=== PATIENT | female | born 1995 | race Caucasian/White ===

== ENCOUNTER 2016-08-31 05:48 | Emergency (ER) | payer SELFPAY ==
[~2016-08-31] VITALS: Ht 149.9 cm; Wt 68.2 kg
[~2016-08-31 05:48] MED LIST: ADVAIR 100/28 DISKU1 IH; BACTRIM DS 8001 TAB PO; CEFTIN500 MG PO; CEPHALEXIN500 M1 PO; COLACE 100100 MG/CAP PO; DOLOPHINE HCL5 MG PO; FLEXERIL 1010 MG/TAB PO; LORTAB 5/500 501 TAB PO; METRONIDAZOLE500 MG PO; MOTRIN600 MG PO; NO HOME MEDICATIONS; NORCO 325 MG-51 TAB PO; PRENATAL1 TA1 PO; PROVENTIL0.09 MG/A1 IH; SINGULAIR10 MG PO; TUMS500 MG PO; ULTRAM 50MG TAB50 MG PO; VIBRAMYCIN HYC100 MG PO; VICODIN 5/5001 UDTAB PO; ZOFRAN 4MG T4 MG/TAB PO; advair; singular
[2016-08-31 05:52] VITALS: BP 125/65; PULSE 108; TEMP 98.3
[2016-08-31] MEDS ORDERED: TOPROL XL 25MG25 MG PO (05:55)
== END 2016-08-31 06:26 | disposition home or self-care (01) ==
LOC: COL.ER 05:48
DX: R21 Rash and other nonspecific skin eruption (principal); I10 Essential (primary) hypertension; F17.210 Nicotine dependence, cigarettes, uncomplicated

== ENCOUNTER 2016-10-12 12:19 | Emergency (ER) | payer SELFPAY ==
[~2016-10-12] VITALS: Ht 149.9 cm; Wt 68.2 kg
[~2016-10-12 12:19] MED LIST changes: +TOPROL XL 25MG25 MG PO
[2016-10-12 12:22] VITALS: BP 125/67; PULSE 95; TEMP 98.4
[2016-10-12 13:19] LABS: PH 8 (5-8); SQUAMOUS EPITHELIAL None Seen /hpf; URINE APPEARANCE Hazy; URINE BACTERIA None Seen /hpf; URINE BILIRUBIN Negative (NEGATIVE); URINE BLOOD 2+ (NEGATIVE); URINE COLOR Straw; URINE GLUCOSE Negative (NEGATIVE); URINE KETONE Negative (NEGATIVE); URINE UROBILINOGEN Negative (NEGATIVE)
[2016-10-12 13:20] LABS: URINE WBC >50 /hpf
[2016-10-12] MEDS ORDERED: PYRIDIUM200 M1 PO (13:52)
[2016-10-12] MEDS ORDERED: MACROBID 1100 MG/CAP PO (13:52)
[2016-10-13] MEDS ORDERED: CEPHALEXIN500 M1 PO (15:45)
== END 2016-10-12 14:18 | disposition home or self-care (01) ==
LOC: COL.ER 12:19
PROVIDERS: Physician Assistant
DX: N39.0 Urinary tract infection, site not specified (principal); J45.909 Unspecified asthma, uncomplicated; F41.9 Anxiety disorder, unspecified; F17.210 Nicotine dependence, cigarettes, uncomplicated

== ENCOUNTER 2016-10-13 14:05 | Emergency (ER) | payer SELFPAY ==
[~2016-10-13] VITALS: Ht 149.9 cm; Wt 68.2 kg
[~2016-10-13 14:05] MED LIST changes: +MACROBID 1100 MG/CAP PO; +PYRIDIUM200 M1 PO
[2016-10-13 14:11] VITALS: TEMP 98.4
[2016-10-13 14:59] LABS: BASO % 0.3 % (0.0-2.0); EOS # 0.1 (0.0-0.7); EOS % 0.8 % (0-4.0); GRAN # 6.8 (1.4-6.5); GRAN % 68.6 % (42.2-75.2); HEMATOCRIT 36.6 % (37.0-47.0); HEMOGLOBIN 12.7 g/dl (12.5-16.0); LYMPH # 2.5 (1.2-3.4); LYMPH % 25.3 % (20.0-51.0); MEAN CELL VOLUME 84 fl (80.0-100.0); MEAN CORPUSCULAR HEMOGLOBIN 29 pg (27.0-31.0); MEAN CORPUSCULAR HGB CONC 35 g/dl (33.0-37.0); MEAN PLATELET VOLUME 9.5 fl (7.4-10.4); MONO # 0.5 (0.1-0.6); MONO % 4.6 % (1.7-9.3); PLATELET COUNT 324 K/mm3 (130-400); RED BLOOD COUNT 4.34 M/mm3 (4.10-5.30); REDCELL DISTRIBUTION WIDTH-CV 12.1 % (11.5-14.5)
[2016-10-13 15:18] LABS: ADJUSTED CALCIUM 8.3 mg/dL (8.4-10.2); ALBUMIN 4.1 gm/dL (3.5-5.0); BILIRUBIN,TOTAL 0.6 mg/dL (0.0-1.0); C-REACTIVE PROTEIN 1.6 mg/dL (0.0-0.9); CALCIUM 8.4 mg/dL (8.4-10.2); CREATININE, serum 0.6 mg/dL (0.52-1.25); POTASSIUM 3.8 mmol/L (3.4-5.0); TOTAL PROTEIN 6.7 gm/dL (6.4-8.2)
[2016-10-13] MEDS ORDERED: CEPHALEXIN500 M1 PO (15:45)
[2016-10-13 15:54] VITALS: BP 105/76; PULSE 78
== END 2016-10-13 15:55 | disposition home or self-care (01) ==
LOC: COL.ER 14:05
PROVIDERS: Physician Assistant
DX: N39.0 Urinary tract infection, site not specified (principal); B96.89 Other specified bacterial agents as the cause of diseases classified elsewhere; J45.909 Unspecified asthma, uncomplicated
CPT/HCPCS: J0696; J7030

== ENCOUNTER 2016-10-29 15:23 | Emergency (ER) | payer SELFPAY ==
[~2016-10-29] VITALS: Ht 149.9 cm; Wt 68.2 kg
[2016-10-29 15:28] VITALS: BP 116/72; TEMP 98.7
[2016-10-29 15:58] VITALS: PULSE 88
== END 2016-10-29 15:58 | disposition home or self-care (01) ==
LOC: COL.ER 15:23
DX: S09.90XA Unspecified injury of head, initial encounter (principal); J45.909 Unspecified asthma, uncomplicated; F41.9 Anxiety disorder, unspecified; F17.210 Nicotine dependence, cigarettes, uncomplicated; Y07.03 Male partner, perpetrator of maltreatment and neglect; Y04.2XXA Assault by strike against or bumped into by another person, initial encounter

== ENCOUNTER 2016-11-01 01:12 | Emergency (ER) | payer SELFPAY ==
[~2016-11-01] VITALS: Ht 149.9 cm; Wt 68.2 kg
[2016-11-01 01:17] VITALS: TEMP 97.4
[2016-11-01] MEDS ORDERED: PREDNISONE20 MG PO (01:44)
[2016-11-01 02:00] VITALS: BP 137/92; PULSE 110
== END 2016-11-01 02:00 | disposition home or self-care (01) ==
LOC: COL.ER 01:12
DX: J45.901 Unspecified asthma with (acute) exacerbation (principal); F17.210 Nicotine dependence, cigarettes, uncomplicated
CPT/HCPCS: J7512

== ENCOUNTER 2017-01-08 12:16 | Emergency (ER) | payer SELFPAY ==
[~2017-01-08] VITALS: Ht 149.9 cm; Wt 68.2 kg
[~2017-01-08 12:16] MED LIST changes: +PREDNISONE20 MG PO
[2017-01-08 12:21] VITALS: BP 114/60; PULSE 102; TEMP 98.9
[2017-01-08 14:39] LABS: BASO % 0.3 % (0.0-2.0); EOS # 0.1 (0.0-0.7); EOS % 1.2 % (0-4.0); GRAN # 7.3 (1.4-6.5); GRAN % 79.7 % (42.2-75.2); LYMPH # 1.3 (1.2-3.4); LYMPH % 13.8 % (20.0-51.0); MEAN CELL VOLUME 87 fl (80.0-100.0); MEAN CORPUSCULAR HEMOGLOBIN 30 pg (27.0-31.0); MEAN CORPUSCULAR HGB CONC 35 g/dl (33.0-37.0); MEAN PLATELET VOLUME 9.5 fl (7.4-10.4); MONO # 0.4 (0.1-0.6); MONO % 4.3 % (1.7-9.3); PLATELET COUNT 256 K/mm3 (130-400); RED BLOOD COUNT 3.98 M/mm3 (4.10-5.30); REDCELL DISTRIBUTION WIDTH-CV 12.3 % (11.5-14.5); WHITE BLOOD COUNT 9.2 K/mm3 (4.8-10.8)
[2017-01-08 14:42] LABS: HEMATOCRIT 34.7 % (37.0-47.0)
[2017-01-08 14:49] LABS: CREATININE, serum 0.53 mg/dL (0.52-1.25); POTASSIUM 3.7 mmol/L (3.4-5.0)
[2017-01-08 16:34] LABS: PH 7 (5-8); URINE APPEARANCE Hazy; URINE BACTERIA Rare /hpf; URINE BILIRUBIN Negative (NEGATIVE); URINE BLOOD 1+ (NEGATIVE); URINE COLOR Yellow; URINE GLUCOSE 2+ (NEGATIVE); URINE KETONE Negative (NEGATIVE); URINE RBC 0-2 /hpf; URINE UROBILINOGEN Negative (NEGATIVE)
== END 2017-01-08 17:50 | disposition home or self-care (01) ==
LOC: COL.ER 12:16
PROVIDERS: Emergency Medicine
DX: O99.511 Diseases of the respiratory system complicating pregnancy, first trimester (principal); J06.9 Acute upper respiratory infection, unspecified; O98.511 Other viral diseases complicating pregnancy, first trimester; B34.9 Viral infection, unspecified; J45.909 Unspecified asthma, uncomplicated; O99.331 Smoking (tobacco) complicating pregnancy, first trimester; F17.200 Nicotine dependence, unspecified, uncomplicated; Z3A.08 8 weeks gestation of pregnancy; Z32.01 Encounter for pregnancy test, result positive
CPT/HCPCS: J2765; J7030

== ENCOUNTER 2017-07-05 11:10 | Outpatient (CLI) | payer MEDICAID ==
[~2017-07-05] VITALS: Ht 152.4 cm; Wt 74.1 kg
[2017-07-05 11:25] VITALS: BP 119/57; PULSE 86; TEMP 99
[2017-07-05] MEDS ORDERED: PRENATAL MVI (11:32)
[2017-07-05 12:45] VITALS: BP 115/57; PULSE 84
== END 2017-07-05 12:55 | disposition home or self-care (01) ==
LOC: LDRO 11:10 → LDR 11:15 → LDRO 12:55
DX: O26.893 Other specified pregnancy related conditions, third trimester (principal); Z3A.35 35 weeks gestation of pregnancy
CPT/HCPCS: OP

== ENCOUNTER 2017-07-09 21:03 | Emergency (ER) | payer MEDICAID ==
[~2017-07-09] VITALS: Ht 149.9 cm; Wt 73.6 kg
[~2017-07-09 21:03] MED LIST changes: +PRENATAL MVI
[2017-07-09 21:05] VITALS: TEMP 98
[2017-07-09 21:24] LABS: COLLECTION METHOD CLEAN CATCH
[2017-07-09 21:30] LABS: MUCOUS Present /lpf; PH 5 (5-8); SQUAMOUS EPITHELIAL 20-50 /hpf; URINE APPEARANCE Cloudy; URINE BACTERIA Rare /hpf; URINE BILIRUBIN Positive (NEGATIVE); URINE BLOOD Negative (NEGATIVE); URINE COLOR Amber; URINE GLUCOSE Negative (NEGATIVE); URINE KETONE 1+ (NEGATIVE); URINE LEUKOCYTE ESTERASE 1+ (NEGATIVE); URINE NITRATE Negative (NEGATIVE); URINE PROTEIN(semi-quant) 2+ (NEGATIVE)
[2017-07-09 21:37] LABS: TRICYCLIC ANTIDEPRESS URINE NEGATIVE
[2017-07-09] MEDS ORDERED: ZOFRAN 4MG T4 MG/TAB PO (22:17)
[2017-07-09 23:00] VITALS: BP 136/61
[2017-07-10] MEDS ORDERED: OMNICEF 300MG300 MG PO (00:05)
[2017-07-10 00:58] VITALS: PULSE 80
== END 2017-07-10 00:58 | disposition home or self-care (01) ==
LOC: COL.ER 21:03
PROVIDERS: Emergency Medicine
DX: O99.283 Endocrine, nutritional and metabolic diseases complicating pregnancy, third trimester (principal); E86.0 Dehydration; O21.9 Vomiting of pregnancy, unspecified; O99.323 Drug use complicating pregnancy, third trimester; F11.23 Opioid dependence with withdrawal; Z3A.36 36 weeks gestation of pregnancy
CPT/HCPCS: J2405; J7030

== ENCOUNTER 2017-07-25 08:52 | Outpatient (CLI) | payer MEDICAID ==
[~2017-07-25] VITALS: Ht 149.9 cm; Wt 75.8 kg
[~2017-07-25 08:52] MED LIST changes: +OMNICEF 300MG300 MG PO
[2017-07-25 09:30] VITALS: BP 128/69; PULSE 93; TEMP 98
[2017-07-25 10:00] VITALS: BP 124/69; PULSE 88
[2017-07-25 10:02] LABS: TRICYCLIC ANTIDEPRESS URINE NEGATIVE
[2017-07-25 10:30] VITALS: BP 136/65; PULSE 135
[2017-07-25 11:00] VITALS: BP 126/72; PULSE 72
== END 2017-07-25 11:15 | disposition home or self-care (01) ==
LOC: LDRO 08:52
PROVIDERS: Obstetrics & Gynecology
DX: O62.9 Abnormality of forces of labor, unspecified (principal); Z3A.37 37 weeks gestation of pregnancy

== ENCOUNTER 2017-08-04 06:24 | Inpatient (IN) | payer MEDICAID ==
[~2017-08-04] VITALS: Ht 152.5 cm; Wt 74.5 kg
[2017-08-07] VITALS (38 sets, daily range): BP systolic 97–147; BP diastolic 50–81; PULSE 73–123; TEMP 97.7–98.8
[2017-08-07 08:28] LABS: BASO % 0.3 % (0.0-2.0); EOS # 0.1 (0.0-0.7); EOS % 1.3 % (0-4.0); GRAN # 7.5 (1.4-6.5); GRAN % 70.5 % (42.2-75.2); HEMATOCRIT 30.9 % (37.0-47.0); LYMPH # 2.3 (1.2-3.4); LYMPH % 21.5 % (20.0-51.0); MEAN CELL VOLUME 81 fl (80.0-100.0); MEAN CORPUSCULAR HEMOGLOBIN 26 pg (27.0-31.0); MEAN CORPUSCULAR HGB CONC 32 g/dl (33.0-37.0); MEAN PLATELET VOLUME 10.1 fl (7.4-10.4); MONO # 0.6 (0.1-0.6); MONO % 5.5 % (1.7-9.3); PLATELET COUNT 324 K/mm3 (130-400); RED BLOOD COUNT 3.82 M/mm3 (4.10-5.30); REDCELL DISTRIBUTION WIDTH-CV 14.5 % (11.5-14.5)
[2017-08-07 08:41] LABS: TRICYCLIC ANTIDEPRESS URINE NEGATIVE
[2017-08-07] MEDS ORDERED: METHADONE H10 MG/TAB PO (08:49)
[2017-08-07] MEDS ORDERED: PRILOSEC 20MG20 MG PO (08:51)
[2017-08-08 00:20] VITALS: BP 106/59; PULSE 91; TEMP 98.1
[2017-08-08 04:30] VITALS: BP 112/55; PULSE 80; TEMP 98.7
[2017-08-08 07:30] VITALS: BP 120/70; PULSE 82; TEMP 97.8
[2017-08-08 21:15] VITALS: BP 110/60; PULSE 88; TEMP 98.4
[2017-08-09 07:00] VITALS: BP 103/62; PULSE 70; TEMP 97.9
[2017-08-09] MEDS ORDERED: IBU600 MG PO (08:58)
[2017-08-09] MEDS ORDERED: PERCOCET 325 MG1 TA2 PO (08:58)
[2017-08-09 15:15] VITALS: BP 125/79; PULSE 84; TEMP 98.4
[2017-08-09 19:15] VITALS: BP 127/58; PULSE 95; TEMP 98
[2017-08-10 07:07] VITALS: BP 139/93; PULSE 65; TEMP 98.2
[2017-08-10 08:20] VITALS: BP 121/67
== END 2017-08-10 12:15 | disposition other institution (70) | DRG 765 ==
LOC: LDR 06:24 → OB 08-07 07:32
PROVIDERS: Obstetrics & Gynecology
PROC: 10D00Z1 Extraction of Products of Conception, Low, Open Approach (ICD-10-PCS; principal; 2017-08-07)
PROC: 3E033VJ Introduction of Other Hormone into Peripheral Vein, Percutaneous Approach (ICD-10-PCS; 2017-08-07)
DX: O99.324 Drug use complicating childbirth (principal); F11.20 Opioid dependence, uncomplicated; O62.0 Primary inadequate contractions; O99.334 Smoking (tobacco) complicating childbirth; F17.210 Nicotine dependence, cigarettes, uncomplicated; O65.4 Obstructed labor due to fetopelvic disproportion, unspecified; Z3A.39 39 weeks gestation of pregnancy; Z37.0 Single live birth
CPT/HCPCS: J0690; J1885; J2175; J2400; J2405; J2590; J2704; J2795; J3010; J7120

== ENCOUNTER 2018-05-15 13:18 | Emergency (ER) | payer SELFPAY ==
[~2018-05-15] VITALS: Ht 149.9 cm; Wt 72.7 kg
[~2018-05-15 13:18] MED LIST changes: +IBU600 MG PO; +METHADONE H10 MG/TAB PO; +PERCOCET 325 MG1 TA2 PO; +PRILOSEC 20MG20 MG PO
[2018-05-15 13:23] VITALS: BP 125/69; TEMP 98.7
[2018-05-15] MEDS ORDERED: SUBOXONE 8 MG-21 TAB SL (13:27)
[2018-05-15 13:39] LABS: COLLECTION METHOD CLEAN CATCH
[2018-05-15 13:54] LABS: MUCOUS Present /lpf; PH 5 (5-8); URINE APPEARANCE Turbid; URINE BACTERIA None Seen /hpf; URINE BILIRUBIN Negative (NEGATIVE); URINE BLOOD 3+ (NEGATIVE); URINE COLOR Yellow; URINE GLUCOSE Negative (NEGATIVE); URINE KETONE Negative (NEGATIVE); URINE LEUKOCYTE ESTERASE 3+ (NEGATIVE); URINE NITRATE Negative (NEGATIVE); URINE PROTEIN(semi-quant) 2+ (NEGATIVE); URINE RBC >50 /hpf; URINE UROBILINOGEN Negative (NEGATIVE)
[2018-05-15] MEDS ORDERED: CEPHALEXIN500 M1 PO (14:02)
[2018-05-15] MEDS ORDERED: PYRIDIUM200 M1 PO (14:02)
[2018-05-15 14:08] VITALS: PULSE 70
== END 2018-05-15 14:09 | disposition home or self-care (01) ==
LOC: COL.ER 13:18
PROVIDERS: Physician Assistant
DX: N39.0 Urinary tract infection, site not specified (principal); J45.909 Unspecified asthma, uncomplicated; G43.909 Migraine, unspecified, not intractable, without status migrainosus; F41.9 Anxiety disorder, unspecified; Z88.0 Allergy status to penicillin; Z88.1 Allergy status to other antibiotic agents; Z98.890 Other specified postprocedural states

== ENCOUNTER 2019-02-06 16:05 | Emergency (ER) | payer MEDICAID ==
[~2019-02-06] VITALS: Ht 149.9 cm; Wt 6.8 kg
[~2019-02-06 16:05] MED LIST changes: +SUBOXONE 8 MG-21 TAB SL
[2019-02-06 16:08] VITALS: BP 115/56; TEMP 98.8
[2019-02-06] MEDS ORDERED: PROVENTIL0.09 MG/A1 IH (16:57)
[2019-02-06] MEDS ORDERED: PREDNISONE20 MG PO (17:08)
[2019-02-06 17:14] VITALS: PULSE 79
== END 2019-02-06 17:15 | disposition home or self-care (01) ==
LOC: COL.ER 16:05
DX: J20.9 Acute bronchitis, unspecified (principal); J45.909 Unspecified asthma, uncomplicated; F17.210 Nicotine dependence, cigarettes, uncomplicated; Z88.0 Allergy status to penicillin; Z88.1 Allergy status to other antibiotic agents

== ENCOUNTER 2019-05-15 10:00 | Inpatient (IN) | payer MEDICAID ==
[2019-05-15] VITALS (20 sets, daily range): BP systolic 101–146; BP diastolic 51–84; PULSE 57–106; TEMP 97.7–98.7
[~2019-05-15] VITALS: Ht 152.5 cm; Wt 78.2 kg
[2019-05-15 10:32] LABS: BASO % 0.5 % (0.0-2.0); EOS # 0.2 (0.0-0.7); EOS % 1.8 % (0-4.0); GRAN # 5.2 (1.4-6.5); GRAN % 63.2 % (42.2-75.2); LYMPH # 2.1 (1.2-3.4); LYMPH % 25.8 % (20.0-51.0); MEAN CELL VOLUME 77 fl (80.0-100.0); MEAN CORPUSCULAR HGB CONC 32 g/dl (33.0-37.0); MEAN PLATELET VOLUME 10.2 fl (7.4-10.4); MONO # 0.6 (0.1-0.6); MONO % 7.5 % (1.7-9.3); PLATELET COUNT 315 K/mm3 (130-400); RED BLOOD COUNT 3.69 M/mm3 (4.10-5.30); REDCELL DISTRIBUTION WIDTH-CV 14.8 % (11.5-14.5)
[2019-05-15 10:33] LABS: HEMATOCRIT 28.5 % (37.0-47.0); MEAN CORPUSCULAR HEMOGLOBIN 24 pg (27.0-31.0)
[2019-05-15 10:52] LABS: TRICYCLIC ANTIDEPRESS URINE NEGATIVE
--- NOTE | 2019-05-15 11:12 | NUR ---
Patient ambulatory to unit accompanied by father of baby and mother for scheduled repeat section. Patient hx reviewed. States she was released from group home on the 12th after serving 30 days for a positive UDS. Patient states she has been clean since. Patient states she has been taking medication for a past opiate drug addiction that she has been prescribed to by Dr. Newell. Patient denies any leaking of fluid, vaginal bleeding or decreased movement. FHR and contraction monitors placed and explained. Cosents signed. Assessment completed. IV started, and labs collected. UA collected on admit and sent to lab. Patient resting in bed, call light in reach.
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
[2019-05-16 03:10] VITALS: BP 108/65; PULSE 81; TEMP 98.1
[2019-05-16 07:15] VITALS: BP 106/78; PULSE 68; TEMP 98.3
[2019-05-16 07:57] LABS: BASO % 0.5 % (0.0-2.0); EOS # 0.2 (0.0-0.7); EOS % 2.4 % (0-4.0); GRAN # 5.4 (1.4-6.5); GRAN % 61.1 % (42.2-75.2); LYMPH # 2.6 (1.2-3.4); LYMPH % 28.9 % (20.0-51.0); MEAN CELL VOLUME 79 fl (80.0-100.0); MEAN CORPUSCULAR HGB CONC 31 g/dl (33.0-37.0); MEAN PLATELET VOLUME 10.4 fl (7.4-10.4); MONO # 0.5 (0.1-0.6); MONO % 5.9 % (1.7-9.3); PLATELET COUNT 293 K/mm3 (130-400); RED BLOOD COUNT 4.03 M/mm3 (4.10-5.30); REDCELL DISTRIBUTION WIDTH-CV 14.8 % (11.5-14.5)
[2019-05-16 07:59] LABS: HEMOGLOBIN 9.8 g/dl (12.5-16.0); MEAN CORPUSCULAR HEMOGLOBIN 24 pg (27.0-31.0)
[2019-05-16] MEDS ORDERED: IBU600 MG PO (10:05)
[2019-05-16] MEDS ORDERED: PERCOCET 325 MG1 TA2 PO (10:06)
--- NOTE | 2019-05-16 10:45 | NUR ---
Initial visit; Patient indisposed, Tire Maker left card of congratulations and information regarding the availability of spiritual care at [facility].
[2019-05-16 11:10] VITALS: BP 122/75; PULSE 76; TEMP 97.9
[2019-05-16 16:25] VITALS: BP 107/64; PULSE 86; TEMP 97.8
[2019-05-16 20:45] VITALS: BP 121/77; PULSE 75; TEMP 99.2
[2019-05-17 07:30] VITALS: BP 126/76; PULSE 71; TEMP 97.7
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
--- NOTE | 2019-05-17 14:48 | NUR ---
On this date, media law faculty member's office did not grain farmworker. castables worker met with Dr Deluca and discussed need for home evaluation to determine safety plan of infant. castables worker contacted Shorty felipe# [phone] at the [facility] police department and discussed the the safety concerns for infant. After talking to Shannon at the Adult Daycare Coordinator's office, the decision was made to place infant into police protective custody upon discharge (which is planned for Monday05/20/19. Worker notified Dr Deluca and nursing staff. Upon discharge, 7th grade social studies teacher will needle setter Johnson and they will place into protective custody.
[2019-05-17 16:55] VITALS: BP 127/82; PULSE 75; TEMP 97.8
[2019-05-17 19:27] VITALS: BP 117/64; PULSE 60; TEMP 97.4
[2019-05-18 08:22] VITALS: BP 145/73; PULSE 67
[2019-05-18 09:32] VITALS: BP 121/76; PULSE 60
== END 2019-05-18 13:15 | disposition home or self-care (01) | DRG 787 ==
LOC: OB 10:00
PROVIDERS: ADMIT Obstetrics & Gynecology
PROC: 10D00Z1 Extraction of Products of Conception, Low, Open Approach (ICD-10-PCS; principal; 2019-05-15)
DX: O34.211 Maternal care for low transverse scar from previous cesarean delivery (principal); O99.324 Drug use complicating childbirth; F19.20 Other psychoactive substance dependence, uncomplicated; O69.1XX0 Labor and delivery complicated by cord around neck, with compression, not applicable or unspecified; O99.334 Smoking (tobacco) complicating childbirth; Z3A.39 39 weeks gestation of pregnancy; Z37.0 Single live birth; Z88.0 Allergy status to penicillin
CPT/HCPCS: J0690; J1885; J2270; J2370; J2405; J2590; J7120